=== PATIENT | male | born 1985 | race Caucasian/White ===

== ENCOUNTER 2018-09-05 08:46 | Emergency (ER) | payer OTHER ==
[~2018-09-05] VITALS: Ht 193 cm; Wt 136.1 kg
[2018-09-05] MEDS ORDERED: PROZAC20 MG PO (08:50)
[2018-09-05 09:13] LABS: ABSOLUTE NEUTROPHILS 3.5 thou/uL (1.4-8.2); BASOPHILS 1.3 % (0.0-2.0); EOSINOPHILS 0.5 % (0.0-3.0); HEMATOCRIT 41.7 % (42.0-52.0); HEMOGLOBIN 14.3 gm/dL (14.0-18.0); LYMPHOCYTES 22.6 % (24.0-44.0); MCH 29.6 pg (26.0-34.0); MCHC 34.4 g/dL (28.0-37.0); MCV 86.1 fL (80.0-100.0); MONOCYTES 5.3 % (1.0-8.0); PLATELET COUNT 229 thou/uL (150-400); POLYS 70.3 % (36.0-66.0); RBC 4.84 mil/uL (4.50-6.00); RDW 14.1 % (10.5-14.5)
[2018-09-05 09:20] LABS: CALCIUM 9.2 mg/dL (8.5-10.1); CREATININE 1.1 mg/dL (0.7-1.3); POTASSIUM 4.1 mmol/L (3.5-5.1)
[2018-09-05 09:27] LABS: ALBUMIN 3.8 g/dL (3.4-5.0); TOTAL BILIRUBIN 0.5 mg/dL (<0.1-1.0)
[2018-09-05 10:10] LABS: URINE BILIRUBIN NEGATIVE (Negative); URINE BLOOD 3+ (Negative); URINE CLARITY CLEAR; URINE COLOR YELLOW; URINE GLUCOSE-RANDOM* NEGATIVE (Negative); URINE KETONES NEGATIVE (Negative); URINE LEUKOCYTES-REFLEX NEGATIVE (Negative); URINE NITRITE-REFLEX NEGATIVE (Negative); URINE PROTEIN (DIPSTICK) NEGATIVE (Negative); URINE UROBILINOGEN 0.2 E.U./dl (0.2-1.0)
[2018-09-05 10:16] LABS: BACTERIA-REFLEX None Seen /HPF (None Seen); CASTS None Seen /LPF (None Seen); CRYSTALS None Seen /LPF (None Seen); MUCUS 0-3 Light strn/LPF (None Seen); SQUAMOUS None Seen /LPF (0-3); URINE RBC >20 Many /HPF (0-2); URINE WBC-REFLEX None Seen /HPF (0-5)
[2018-09-05] MEDS ORDERED: FLOMAX0.4 MG PO (11:27)
[2018-09-05] MEDS ORDERED: NAPROSYN500 M1 PO (11:27)
[2018-09-05] MEDS ORDERED: NORCO 5-325 TA1 EAC1 PO (11:27)
[2018-09-05 11:30] VITALS: BP 138/66
== END 2018-09-05 11:30 | disposition home or self-care (01) ==
LOC: ER 08:46
PROVIDERS: Emergency Medicine
DX: N20.0 Calculus of kidney (principal)

== ENCOUNTER → 2020-09-26 | Outpatient (CLI) | payer BC, OTHER ==
[~2020-09-26] VITALS: Ht 193 cm; Wt 139.7 kg
[~2020-09-26] MED LIST: ADVIL200 M3 PO; FLOMAX0.4 MG PO; NAPROSYN500 M1 PO; NORCO 5-325 TA1 EAC1 PO; NORFLEX100 MG PO; PROZAC20 MG PO
[2020-09-26 08:21] VITALS: BP 141/90
--- NOTE | 2020-09-26 08:49 | NUR ---
Pain Clinic Assessment: 1. History of Osteoarthritis: LUMBAR SPINE History of Rheumatoid Arthritis: DENIES 2. Height: 6 ft. 4 in. 193.0 cm. Weight: 308.0 lb. oz. 139.708 kg. Patient's BMI: 37.5 3. Vital Signs: BP: 141/90 Pulse: 73 Resp: 16 Temp: 02 Sat: 98 ECG Mon: 4. Pain Intensity: 8 TO 10 5. Fall Risk: Dizziness: Y Needs help standing or walking: N Fallen in the last 3 months: N Fall risk comments: 6. Patient on Blood Thinner: None 7. History of Hypertension: N 8. Opioid Therapy greater than 6 weeks: N Opiate Contract Signed: 9. Risk Assessment Tool Provided: MOD-5 10. Functional Assessment Tool: 11. Recreational Drug Use: Current within past 3 mos Drug Type: MARIJUANA 2X LAST 6 MOA Tobacco Use: Never Smoker Tobacco Type: Amount or Packs/day: How Many Years: Alcohol Use: Yes Frequency: Weekly Quant: 2
--- NOTE | 2020-09-26 12:24 | HPC ---
[facility] [address] [place] [address] PAIN MANAGEMENT CONSULTATION Name: KRAIG SCOTT Room #: REG [facility]..#: [id number] Admission: 09/26/20 Attend Phys: Danie Zheng DO Discharge: Date of : 85 Report #: [id number] THIS REPORT FOR: cc: Nick Escalante,Nick Elmore,Danie Arora DO ~ cc: Tien Castano MD DATE OF SERVICE: 09/26/2020 CHIEF COMPLAINT: Low back pain, right lower extremity pain with paresthesias. HISTORY OF PRESENT ILLNESS: As you know, the patient is a pleasant 35-year-old male, who reports acute onset of low back pain, right lower extremity pain with paresthesias that began in 12/2018. The patient states he recalls a slip out of his truck on to [employer] steps and then onto the ground, falling on his right side. Since then, he has been complaining of right-sided back pain, but did not notice initially radiation down the right leg. Over the preceding time, his pain intensified. He describes symptoms that began to progress 11/2019 and became severe by 05/2020. He describes pain to his referring physician a sharp, shooting, stabbing, radiating from the low back to the right buttock and down the posterior thigh to his right knee. He describes intermittent numbness and tingling. He was seen in consultation by Dr. Bayron Escalante, who has trialed the patient on conservative treatment including home stretching exercises, but no formalized physical therapy and muscle relaxants. These two treatment options did not provide much in the way of improvement. The patient was subsequently referred on to neurosurgery to discuss surgical options to address the L5-S1 level findings from imaging. The patient was seen by Dr. Castano and advised to trial conservative treatment options, if these do not provide benefit, then look toward surgical options. He was subsequently referred on to our clinic to discuss lumbar epidural injections under fluoroscopic guidance. The patient reports his pain is constant. He describes the pain as a shooting, numbness, tingling and sharp sensation. Places current pain score at 8/10, daily average at 8/10, worst pain has been is 10/10. The patient states pain is exacerbated with sitting for any length of time, pain is improved with standing or lying flat on hard surfaces. He has been referred to our service to discuss interventional treatment options to address lumbar radiculopathy. PAST MEDICAL HISTORY: 1. Sleep apnea. 2. Anxiety disorder. 3. Depression. PAST SURGICAL HISTORY: 1. Cholecystectomy. 2. Vasectomy. [address] [address] PAIN MANAGEMENT CONSULTATION Name: KRAIG SCOTT Room #: REG [facility] SharminJermain#: [id number] Admission: 09/26/20 Attend Phys: Danie Zheng DO Discharge: Date of : 85 Report #: [id number] SOCIAL HISTORY: The patient reports no tobacco use. Denies IV or illicit drug use, though admits to marijuana periodically. He admits to an occasional alcohol beverage. He is working, not receiving workmen's compensation nor is he trying to obtain disability benefits. He is not in litigation in regard to pain. He is unaccompanied at today's visit. REVIEW OF SYSTEMS: Positive for weight change, decrease in appetite, wearing corrective eyewear, loss of appetite, kidney stones, lightheadedness, dizziness, numbness and tingling sensations involving the right lower extremity. All other review of systems negative per 12-point review of systems other than those listed in history of present illness. Pain impact score 33/70, moderate interference of daily activities secondary to pain. ALLERGIES: No known drug allergies. CURRENT MEDICATIONS: Norflex 100 mg 3 times a day, ibuprofen 200 mg every 8 hours, naproxen 500 mg p.r.n. IMAGING: MRI of lumbar spine dated 09/07/2020 shows L1-L2, L2-L3 and L3-L4 with minimal generalized disc bulge, degenerative changes, small facet arthropathy, mild to moderate ligamentum flavum hypertrophy. These findings combined to cause no central canal or neural foraminal stenosis. L4-L5 shows mild generalized disc bulge. Superimposed disc bulge with central right paracentral focal disc protrusion measuring 4 mm. Degenerative changes noted of the facet joints. There is prominent posterior epidural fat and mild ligamentum flavum hypertrophy, small facet effusions combining to result in mild right and minimal left central canal stenosis, no neural foraminal stenosis. L5-S1 shows disc space loss with mild generalized disc bulge. Superimposed disc bulge and right paracentral focal disc protrusion measuring 6 mm. Degenerative changes involving the facet joints. Mild ligamentum flavum hypertrophy bilaterally. These result in severe right lateral central canal stenosis. Disc herniation appears to impinge upon the right S1 nerve root. Moderate right neural foraminal stenosis is also seen, negative left neural foraminal stenosis. PHYSICAL EXAMINATION: VITAL SIGNS: Blood pressure 141/90, pulse is 73, respiratory rate 16 and unlabored. The patient is 98% on room air, height 6 feet 4 inches tall, weight 308 pounds, BMI calculated 37.5. GENERAL: Well-developed, well-nourished, well-hydrated exogenously obese 35-year-old male. He appears stated age. He is placing current pain score at around 8-10/10. HEENT: Normocephalic, atraumatic. Pupils equal, round and responsive to light. Speech is fluent. The patient deemed a good historian. [facility] [address] [place] [address] PAIN MANAGEMENT CONSULTATION Name: KRAIG SCOTT Room #: REG [facility].#: [id number] Admission: 09/26/20 Attend Phys: Danie Zheng DO Discharge: Date of : 85 Report #: [id number] LUNGS: Clear. No wheeze, rhonchi or rales. CARDIOVASCULAR: Regular. No gallop, no rub. ABDOMEN: Soft, obese, normoactive bowel sounds. EXTREMITIES: Show no clubbing, no cyanosis, no edema. MUSCULOSKELETAL: Lower extremity strength is symmetrical 5/5 intact to light touch from L1 through L5 dermatomes. Distal right S1 distribution appears to have decreased tactile sensation to light touch. Seated straight leg raising is positive on the right. Supine straight leg raising positive on the right. Fabere's test is negative. Modified Gaenslen's positive for axial back pain. Ankle clonus negative. Babinski is negative. Alvaro's testing is negative. The patient does have an antalgic gait favoring right lower extremity over left. ASSESSMENT: 1. Symptomatic lumbar radiculopathy. 2. 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 3. Displacement of lumbar intervertebral disc with radiculopathy. 4. Lumbosacral spondylosis with radiculopathy. 5. Facet arthropathy, lumbar spine. PLAN: 1. Based on today's physical exam, history the patient provides, the distribution of the patient's symptoms and the description he uses in regard to pain what appear the patient is suffering from lumbar radiculopathy, the findings of his MRI we went over with the patient today. We spent over 18 minutes of time reviewing the patient's MRI and correlating the findings of the MRI to the symptoms he is currently displaying. It does appear the source of the symptoms is that the findings at the L5-S1 level secondary to lateral recess stenosis affecting the right S1 nerve root. We discussed with the patient the treatment options we have available following was discussed with the patient today. We discussed physical therapy, stretching exercises and core strengthening as a treatment approach. We discussed medication management with suggestions of treatment to include amitriptyline, nortriptyline, Cymbalta, Lyrica, gabapentin as a possible treatment along with a consistent nonsteroidal anti-inflammatory. We discussed epidural injections under fluoroscopic guidance for which the patient was referred to our clinic. We also discussed spinal cord stimulator therapy and ultimately surgical decompression of the L5-S1 level. After reviewing the risks and benefits of all proposed treatment options, the patient chose to begin the process of undergoing lumbar epidural injections under fluoroscopic guidance. 2. The patient will clear his schedule for tomorrow to undergo a lumbar epidural injection. He will need 24 hours of time to recover after the procedure and to allow improvement in efficacy with the shot. He is going to clear his schedule for tomorrow morning, so he can undergo the procedure and then return to his home for the remainder of the Friday. We have made the [address] [address] PAIN MANAGEMENT CONSULTATION Name: KRAIG SCOTT Room #: REG [facility]#: [id number] Admission: 09/26/20 Attend Phys: Danie Zheng DO Discharge: Date of : 85 Report #: [id number] patient a tentative appointment for tomorrow morning to undergo the requested lumbar epidural injection. 3. No medication changes made at today's visit. The patient will continue current medical therapy as prior prescribed. 4. We plan to see the patient back in followup visit tomorrow to undergo lumbar epidural injection, assuming he can clear his schedule. We have an appointment time for him to undergo the procedure tomorrow morning at about 8:30. 5. We wish to thank Dr. Tien Castano for the referral of the patient to our clinic. We will keep you apprised of his response to treatment as we address lumbar radiculopathy. Again, we wish to thank you for the opportunity to see the patient in consultation. <ELECTRONICALLY SIGNED> By: Danie Zheng DO 09/26/20 1224 [id number] Danie Zheng DO /nt
== END ==
LOC: PAIN 06:42
PROVIDERS: ATTEND Anesthesiology Pain Medicine
DX: M51.16 Intervertebral disc disorders with radiculopathy, lumbar region (principal); M48.061 Spinal stenosis, lumbar region without neurogenic claudication; M47.27 Other spondylosis with radiculopathy, lumbosacral region; G47.30 Sleep apnea, unspecified; Z90.49 Acquired absence of other specified parts of digestive tract; Z68.37 Body mass index [BMI] 37.0-37.9, adult

== ENCOUNTER → 2020-09-27 | Outpatient (CLI) | payer BC, OTHER ==
[~2020-09-27] VITALS: Ht 193 cm; Wt 139.7 kg
--- NOTE | ~2020-09-27 | HPC ---
[facility] [place] [address] PAIN MANAGEMENT CONSULTATION Name: SONIAKRAIG OWENS Room #: REG [facility] Mary.#: [id number] Admission: 09/27/20 Attend Phys: Danie Zheng DO Discharge: Date of : 85 Report #: [id number] THIS REPORT FOR: cc: Nick Escalante,Nick Elmore,Danie Arora DO ~ cc: Nick Escalante DATE OF SERVICE: 09/27/2020 REFERRING PHYSICIAN: Dr. Nick Escalante. CHIEF COMPLAINT: Low back pain, right lower extremity pain and paresthesias. HISTORY OF PRESENT ILLNESS: As you know, the patient is a very pleasant 35-year-old male referred to our service after experiencing acute onset of low back pain, right lower extremity pain, paresthesia began in December 2018. He has trialled conservative treatment, but did not note improvement in symptoms. He was referred to Neurosurgery to discuss surgical options to address the L5-S1 level findings from recent MRI. He was seen by Dr. Castano who advised the patient to trial conservative treatment before looking toward surgical options. He was subsequently referred on to our clinic. We saw the patient in consultation on 09/27/2019, diagnosed with lumbar radiculopathy due to severe lateral recess stenosis. He was established today's appointment to undergo lumbar epidural injection under fluoroscopic guidance. The patient has had no change in his distribution of symptoms overnight. He is continuing to escalate his pain at a level of 9/10. ALLERGIES: No known drug allergies. CURRENT MEDICATIONS: NORFLEX, IBUPROFEN, NAPROXEN. SOCIAL HISTORY: The patient denies tobacco use. Denies IV or illicit drug use. Admits to marijuana periodically. He admits to occasional alcohol beverage. He is working, not receiving workmen's compensation, unaccompanied today. IMAGING: No new imaging available. PHYSICAL EXAMINATION: VITAL SIGNS: Blood pressure 149/86, pulse 76, respiratory rate 18 and unlabored. The patient is 97% on room air, height 6 feet 4 inches tall, weight 380 pounds, BMI calculated 37.5. GENERAL: Well-developed, well-nourished, well-hydrated exogenously obese 35-year-old male, pain is rated today 9/10. HEENT: normocephalic, atraumatic. Pupils equal, round and responsive. He is wearing a mask in compliance with COVID-19 regulations. EXTREMITIES: Show no clubbing, no cyanosis, no edema. [facility] [address] [place] [address] PAIN MANAGEMENT CONSULTATION Name: SONIAKRAIG OWENS Room #: REG [facility].#: [id number] Admission: 09/27/20 Attend Phys: Danie Zheng DO Discharge: Date of : 85 Report #: [id number] MUSCULOSKELETAL: Lower extremity strength appears symmetrical again today 5/5. Seated straight leg raising negative. Supine straight leg raising is positive on the right. Claudia's test is negative. Gait is mildly antalgic favoring right lower extremity. ASSESSMENT: 1. Symptomatic lumbar radiculopathy. 2. 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 3. Displacement of lumbar intervertebral disk with radiculopathy. 4. Lumbosacral spondylosis with radiculopathy. 5. Facet arthropathy of the lumbar spine. 6. Chronic intractable pain. PLAN: 1. The patient returns today in followup visit having received authorizations to undergo a lumbar epidural injection under fluoroscopic guidance. He is also able to clear his schedule for the afternoon to go home and rest and relax after today's procedure. The patient has been advised of the risks and benefits of a lumbar epidural injection. These risks include, but are not necessarily limited to bleeding, bruising, infection, worsening pain, no relief of pain, also risk of temporary or permanent muscle weakness, temporary or permanent nerve damage, possible paralysis, and . The patient states understood and wished to proceed. 2. No medication changes made at today's visit. The patient will continue current medical therapy as prior prescribed. 3. I will see the patient back in followup visit in 31 days. At that time, review efficacy of today's lumbar epidural injection and determine if next in the series of epidural injections might be recommended. PROCEDURE NOTE DESCRIPTION OF PROCEDURE: L5-S1 right parasagittal epidural steroid injection under fluoroscopic guidance. This is the first procedure of the first series that the patient is undergoing. After obtaining written consent, the patient was taken back to the fluoroscopy suite, placed in a prone position with pillow under the abdomen to decrease lumbar lordosis. The skin overlying the lumbosacral area was then prepped and draped in aseptic fashion. The L5-S1 vertebral interspace was then identified by AP fluoroscopy. The skin and subcutaneous tissue overlying the target site of injection was anesthetized with 3 mL 1% lidocaine. A(n) 20 gauge 3.5 inch Tuohy needle was then advanced under fluoroscopic guidance towards the epidural space using a right parasagittal approach. The epidural space was identified using loss of resistance to air technique. After [facility] [address] [address] PAIN MANAGEMENT CONSULTATION Name: KRAIG SCOTT Room #: REG [facility]sorio#: [id number] Admission: 09/27/20 Attend Phys: Danie Zheng DO Discharge: Date of : 85 Report #: [id number] negative aspiration for heme or cerebrospinal fluid, a total of 1 mL of Omnipaque was injected. A lumbar epidurogram was confirmed using both AP and lateral fluoroscopy. After negative aspiration for heme or cerebrospinal fluid, 5 mL of a solution containing 2 mL 40 mg per mL 80 mg total triamcinolone along with 3 mL of lidocaine 1% was injected in increments. Contrast spread was noted posterior epidural space. The needle was then retracted approximately half way and needle tract flushed with 1 mL of 1% lidocaine. Needle was then removed. There were no apparent sensory or motor deficits in the lower extremity following the procedure. A sterile bandage was placed over the injection site. The heart rate, pulse, oximetry and blood pressure were continuously monitored after the procedure. There were no apparent complications. The patient tolerated the procedure well and was carefully escorted to the recovery room in stable condition. There were no apparent complications. After meeting discharge criteria, the patient was then discharged home. By: [id number] Danie Zheng DO /nt
[2020-09-27 09:54] VITALS: BP 149/86
--- NOTE | 2020-09-27 10:31 | NUR ---
Pain Clinic Assessment: 1. History of Osteoarthritis: LUMBAR SPINE History of Rheumatoid Arthritis: DENIES 2. Height: 6 ft. 4 in. 193.0 cm. Weight: 308.0 lb. oz. 139.708 kg. Patient's BMI: 37.5 3. Vital Signs: BP: 149/86 Pulse: 76 Resp: 18 Temp: 02 Sat: 97 ECG Mon: 4. Pain Intensity: 9 5. Fall Risk: Dizziness: N Needs help standing or walking: N Fallen in the last 3 months: N Fall risk comments: 6. Patient on Blood Thinner: None 7. History of Hypertension: N 8. Opioid Therapy greater than 6 weeks: N Opiate Contract Signed: 9. Risk Assessment Tool Provided: MOD-5 10. Functional Assessment Tool: 11. Recreational Drug Use: Current within past 3 mos Drug Type: Tobacco Use: Never Smoker Tobacco Type: Amount or Packs/day: How Many Years: Alcohol Use: Yes Frequency: Quant:
== END | disposition home or self-care (01) ==
LOC: PAIN 07:00
PROVIDERS: ATTEND Anesthesiology Pain Medicine
DX: M51.16 Intervertebral disc disorders with radiculopathy, lumbar region (principal); M47.27 Other spondylosis with radiculopathy, lumbosacral region; M47.26 Other spondylosis with radiculopathy, lumbar region; M48.061 Spinal stenosis, lumbar region without neurogenic claudication; G89.29 Other chronic pain; Z98.890 Other specified postprocedural states; Z79.899 Other long term (current) drug therapy

== ENCOUNTER → 2020-11-15 | Outpatient (CLI) | payer BC, OTHER ==
[~2020-11-15] VITALS: Ht 193 cm; Wt 138.0 kg
[~2020-11-15] MED LIST changes: +LEXAPRO20 MG PO
[2020-11-15 08:02] VITALS: BP 141/96
--- NOTE | 2020-11-15 08:14 | NUR ---
Pain Clinic Assessment: 1. History of Osteoarthritis: LUMBAR SPINE History of Rheumatoid Arthritis: DENIES 2. Height: 6 ft. 4 in. 193.0 cm. Weight: 304.2 lb. oz. 137.985 kg. Patient's BMI: 37.0 3. Vital Signs: BP: 141/96 Pulse: 60 Resp: 16 Temp: 02 Sat: 97 ECG Mon: 4. Pain Intensity: 6 5. Fall Risk: Dizziness: N Needs help standing or walking: N Fallen in the last 3 months: N Fall risk comments: 6. Patient on Blood Thinner: None 7. History of Hypertension: N 8. Opioid Therapy greater than 6 weeks: N Opiate Contract Signed: 9. Risk Assessment Tool Provided: MOD-5 10. Functional Assessment Tool: 11. Recreational Drug Use: Current within past 3 mos Drug Type: Tobacco Use: Never Smoker Tobacco Type: Amount or Packs/day: How Many Years: Alcohol Use: Yes Frequency: Quant:
--- NOTE | 2020-11-21 15:04 | HPC ---
[facility] [place] [address] PAIN MANAGEMENT CONSULTATION Name: KRAIG SCOTT Room #: REG [facility]..#: [id number] Admission: 11/15/20 Attend Phys: Danie Zheng DO Discharge: Date of : 85 Report #: [id number] THIS REPORT FOR: cc: Bayron Escalante,Danie Villegas DO ~ cc: Tien Castano MD, Nick Escalante DO DATE OF SERVICE: 11/15/2020 CHIEF COMPLAINT: Low back pain, right lower extremity pain with paresthesias. HISTORY OF PRESENT ILLNESS: As you know, the patient is a very pleasant 35-year-old male referred to our service for chronic low back pain, right lower extremity pain and paresthesias that began in December 2018. He trialed conservative treatments including [id number]-[id number] medication, rest, relaxation and physical therapy without benefit. He sought evaluation through neurosurgery who advised the patient to trial epidural injections before moving forward with possible surgical options. We saw the patient in consultation per the request of Dr. Castano on 09/26/2020, having the patient return to undergo first in a series of lumbar epidural injections. The patient reports about a 50% improvement in overall pain with that injection, but unfortunately symptoms have reoccurred. He returns today in followup visit requesting the next in the series of lumbar epidural injections to build on success of previous intervention. The patient is indicating pain begins in the low back, radiates down the right leg to the foot. He describes the pain as sharp, shooting, stabbing, exacerbated with sitting and doing heavy activities, improves with standing and lying down as well as the previous epidural injection. He returns today in followup visit requesting the next in the series of lumbar epidural injections. ALLERGIES: No known drug allergies. CURRENT MEDICATIONS: Norflex, ibuprofen, and naproxen. SOCIAL HISTORY: The patient denies tobacco use. Denies IV or illicit drug use. Admits to occasional marijuana, but has discontinued of late. He is not receiving Workmen's Compensation nor is he trying to obtain disability benefits. Unaccompanied today. IMAGING: No new imaging available. PHYSICAL EXAMINATION: VITAL SIGNS: Blood pressure 141/96, pulse 60, respiratory rate 16 and unlabored. The patient 97% on room air, height 6 feet 4 inches tall, weight 304.2 pounds, BMI calculated 37.0. GENERAL: Well-developed, well-nourished, well-hydrated, exogenously obese [facility] [address] [place] [address] PAIN MANAGEMENT CONSULTATION Name: KRAIG SCOTT Room #: REG [facility].#: [id number] Admission: 11/15/20 Attend Phys: Danie Zheng DO Discharge: Date of : 85 Report #: [id number] 35-year-old male appearing stated age, pain score today rated at 6/10. HEENT: Normocephalic, atraumatic. Pupils are round and responsive. He is wearing a mask in compliance with COVID-19 regulations. EXTREMITIES: Show no clubbing, no cyanosis. No appreciable edema. MUSCULOSKELETAL: Lower extremity strength is symmetrical. Seated straight leg raising negative. Supine straight leg raising positive on the right approximately 60-degree angle. Ankle clonus negative. Babinski is negative. Gait appears to have improved, but is mildly antalgic. ASSESSMENT: 1. Symptomatic lumbar radiculopathy. 2. 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 3. Displacement of lumbar intervertebral disk with radiculopathy. 4. Lumbosacral spondylosis with radiculopathy. 5. Facet arthropathy of lumbar spine. 6. Chronic intractable pain. PLAN: 1. The patient returns today in followup visit requesting to undergo lumbar epidural injection under fluoroscopic guidance. He reports about a 50% improvement in overall pain with the initial injection, returning today hoping to undergo next in the series to build on success of previous intervention. The patient has been advised of the risks and benefits of the procedure, states understood and wished to proceed. 2. The patient and I had a long discussion when we initially saw the patient on 09/26/2020 and again when he followed up to undergo the epidural that we recommend that he try to make adjustments in his work activities as I did not feel he can continue to participate in the high level of physical activity required for his [employer] job. 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 He is very pleased. He is excited to begin this new chapter in his life. I am glad to see the patient did consider this as an option and has made some adjustments in his lifestyle, which I think will allow him to continue to work without progression of his symptoms. 3. We did provide the patient a refill of his naproxen 500 mg dose. We recommend a b.i.d. dose. I have given him #60 tablets with refills. These were sent to his local pharmacy via [facility]. I did advise the patient to take no other nonsteroidal anti-inflammatories with this medication including the reported ibuprofen. 4. We will see the patient back in followup visit on an as-needed basis. I am hopeful the patient will once again see good and prolonged benefit with the epidural injection provided today. PROCEDURE NOTE DESCRIPTION OF PROCEDURE: L5-S1 right paramedian epidural steroid injection [facility] [address] [place] [address] PAIN MANAGEMENT CONSULTATION Name: KRAIG SCOTT Room #: REG [facility]io#: [id number] Admission: 11/15/20 Attend Phys: Danie Zheng DO Discharge: Date of : 85 Report #: [id number] under fluoroscopic guidance. This is the second procedure of the first series that the patient is undergoing. After obtaining written consent, the patient was taken back to the fluoroscopy suite, placed in a prone position with pillow under the abdomen to decrease lumbar lordosis. The skin overlying the lumbosacral area was then prepped and draped in aseptic fashion. The L5-S1 vertebral interspace was then identified by AP fluoroscopy. The skin and subcutaneous tissue overlying the target site of injection was anesthetized with 3 mL 1% lidocaine. A 20-gauge, 4-1/2-inch Tuohy needle was then advanced under fluoroscopic guidance towards the epidural space using a right paramedian approach. The epidural space was identified using loss of resistance to air technique. After negative aspiration for heme or cerebrospinal fluid, a total of 1 mL of Omnipaque was injected. A lumbar epidurogram was confirmed using both AP and lateral fluoroscopy. After negative aspiration for heme or cerebrospinal fluid, 5 mL of a solution containing 2 mL 40 mg per mL, 80 mg total triamcinolone along with 3 mL of lidocaine 1% was injected in increments. Contrast spread was noted in the posterior epidural space. The needle was then retracted approximately half way and needle tract flushed with 1 mL of 1% lidocaine. Needle was then removed. There were no apparent sensory or motor deficits in the lower extremity following the procedure. A sterile bandage was placed over the injection site. The heart rate, pulse, oximetry and blood pressure were continuously monitored after the procedure. There were no apparent complications. The patient tolerated the procedure well and was carefully escorted to the recovery room in stable condition. There were no apparent complications. After meeting discharge criteria, the patient was then discharged home. <ELECTRONICALLY SIGNED> By: Danie Zheng DO 11/21/20 [id number] Danie Zheng DO /nt
== END | disposition home or self-care (01) ==
LOC: PAIN 06:56
PROVIDERS: ATTEND Anesthesiology Pain Medicine
DX: M51.16 Intervertebral disc disorders with radiculopathy, lumbar region (principal); M48.061 Spinal stenosis, lumbar region without neurogenic claudication; M47.27 Other spondylosis with radiculopathy, lumbosacral region; M47.26 Other spondylosis with radiculopathy, lumbar region; G89.29 Other chronic pain; Z98.890 Other specified postprocedural states; Z79.899 Other long term (current) drug therapy

== ENCOUNTER → 2021-02-06 | Outpatient (CLI) | payer BC, OTHER ==
[~2021-02-06] VITALS: Ht 193 cm; Wt 143.3 kg
[~2021-02-06] MED LIST changes: +NEURONTIN 300M300 M2 PO
--- NOTE | ~2021-02-06 | HPC ---
[facility] [place] [address] PAIN MANAGEMENT CONSULTATION Name: KRAIG SCOTT [id number] Admission: 02/06/21 Attend Phys: Danie Zheng DO Discharge: Date of : 85 Report #: [id number] THIS REPORT FOR: cc: Bayron Escalante,Bayron Elmore,Danie Arora DO ~ cc: Tien Castano MD, Bayron Escalante DO DATE OF SERVICE: 02/06/2021 CHIEF COMPLAINT: Low back pain, right lower extremity pain with paresthesias. HISTORY OF PRESENT ILLNESS: As you know, the patient is a very pleasant 35-year-old male referred to our service for chronic low back pain, right lower extremity pain with paresthesias began in 2018. He has trialled conservative treatment, hpuv-xfw-[id number] medications, rest, relaxation without benefit. He submitted to lumbar epidural injection under fluoroscopic guidance. On our visit of 09/27/2020 where he received benefit with the injection, he returned 1 month later on 11/15/2020, undergoing the second in the series. He reports that the most recent epidural injection gave benefit of greater than 50%, lasting for 4 weeks, but unfortunately activities at his current employment required him to be more active than normal and this led to recurrence of symptoms. He returns today to discuss other treatment options to address ongoing lumbar radicular symptoms. The patient denies any specific injury or trauma that may have led to symptom development. He has had no changes in his medication management since our last visit. ALLERGIES: No known drug allergies. CURRENT MEDICATIONS: Ibuprofen 200 mg t.i.d. Norflex 800 mg 3 times a day, citalopram 20 mg once a day. SOCIAL HISTORY: The patient denies tobacco use, denies IV or illicit drug use. Admits occasional marijuana. He is not receiving workmen's compensation nor is he trying to obtain disability benefits. He is accompanied to today's appointment by his significant other. IMAGING: No new imaging available. PHYSICAL EXAMINATION: VITAL SIGNS: Blood pressure 151/100, pulse is 87, respiratory rate 16 and unlabored. The patient is 98% on room air, height 6 feet 4 inches tall, weight 316 pounds, BMI calculated 38.5. GENERAL: Well-developed, well-nourished, well-hydrated exogenously obese 35-year-old male, appearing stated age, pain is rated today at 6/10. HEENT: Normocephalic, atraumatic. Pupils equal, round and responsive. He is wearing a mask in compliance with COVID-[address] [address] PAIN MANAGEMENT CONSULTATION Name: SONIAKRAIG GRACIELA Room #: REG [facility] Mary.#: [id number] Admission: 02/06/21 Attend Phys: Danie Zheng DO Discharge: Date of : 85 Report #: [id number] EXTREMITIES: Show no clubbing, no cyanosis, no appreciable edema. MUSCULOSKELETAL: Remains similar. Seated straight leg raising negative. Supine straight leg raising positive on the right. Ankle clonus is once again negative. Muscle bulk and tone is equal and symmetrical in lower extremities. ASSESSMENT: 1. Symptomatic lumbar radiculopathy. 2. 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 3. Displacement of lumbar intervertebral disk with radiculopathy. 4. Lumbosacral spondylosis with radiculopathy. 5. Facet arthropathy of lumbar spine. 6. Chronic intractable pain. PLAN: 1. The patient returns today in followup visit to discuss options for treatment. We have had the patient undergo 2 epidural injections under fluoroscopic guidance, both of which have provided improvement in symptoms of greater than 50%, but unfortunately, his symptoms have reoccurred. 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 The patient returns today to discuss options for treatment. The following was discussed with the patient today. We discussed physical therapy, stretching exercises, core strengthening as a treatment approach. This is in conjunction with a concerted effort at weight loss. We discussed medication management utilizing neuropathic medications such as amitriptyline, nortriptyline, Cymbalta, Lyrica or gabapentin. We discussed repeating a lumbar epidural injection under fluoroscopic guidance as we have one remaining epidural injection in the 6 months. We discussed spinal cord stimulator therapy and ultimately surgical decompression. After reviewing risks and benefits of all proposed treatment options, the patient chose to begin with adjustments in medication management. 2. The patient will be started on gabapentin 300 mg dose, he will start 1 tab p.o. at bedtime for 3 nights, then increase to 2 tabs p.o. at bedtime, assuming no improvement in symptoms, no side effects. If no improvement in symptoms and side effects over 3 nights, then triple the dose to 900 mg p.o. at bedtime. The patient will watch for side effects of sleepiness, disorientation, confusion, mental slowing. If he notes those side effects, reduce to the dose prior and contact our clinic. If no improvement in symptoms and no side effects, then continue the titration as follows. The patient will then increase 1 tab p.o. q.a.m. and 3 tabs p.o. at bedtime for 3 nights. If again no improvement in symptoms, no side effects, then go to 1 tab in the morning, 4 tabs at night for 3 nights. If again no improvement in symptoms, no side effects, then increase to 600 mg in the morning, continuing 1200 mg at night for 3 nights. Following this titration, he will then increase to 900 mg morning and 1200 mg at night. The patient again will watch for side effects of medication. The prescription was sent to his local pharmacy of [id number], 300 mg tablets. If the patient has any questions or concerns in regards to medication, contact our clinic. [address] [address] PAIN MANAGEMENT CONSULTATION Name: KRAIG SCOTT [facility] [id number] Admission: 02/06/21 Attend Phys: Danie Zheng DO Discharge: Date of : 85 Report #: [id number] 3. We will plan to see the patient back in followup visit in 1 month. At that time, review the efficacy of the addition of gabapentin and determine if adjustments need to be made further where he is doing well and will continue the treatment as directed. By: [id number] Danie Zheng DO /nt
[2021-02-06 13:02] VITALS: BP 151/100
--- NOTE | 2021-02-06 13:06 | NUR ---
Pain Clinic Assessment: 1. History of Osteoarthritis: LUMBAR SPINE History of Rheumatoid Arthritis: DENIES 2. Height: 6 ft. 4 in. 193.0 cm. Weight: 316.0 lb. oz. 143.337 kg. Patient's BMI: 38.5 3. Vital Signs: BP: 151/100 Pulse: 87 Resp: 16 Temp: 02 Sat: 98 ECG Mon: 4. Pain Intensity: 6 5. Fall Risk: Dizziness: N Needs help standing or walking: N Fallen in the last 3 months: N Fall risk comments: 6. Patient on Blood Thinner: None 7. History of Hypertension: N 8. Opioid Therapy greater than 6 weeks: N Opiate Contract Signed: 9. Risk Assessment Tool Provided: MOD-5 10. Functional Assessment Tool: 11. Recreational Drug Use: Past greater than 3 mos Drug Type: Tobacco Use: Never Smoker Tobacco Type: Amount or Packs/day: How Many Years: Alcohol Use: No Frequency: Quant:
== END ==
LOC: PAIN 10:48
PROVIDERS: ATTEND Anesthesiology Pain Medicine
DX: M47.26 Other spondylosis with radiculopathy, lumbar region (principal); M47.27 Other spondylosis with radiculopathy, lumbosacral region; M51.16 Intervertebral disc disorders with radiculopathy, lumbar region; M48.061 Spinal stenosis, lumbar region without neurogenic claudication; M79.661 Pain in right lower leg; G89.29 Other chronic pain; Z79.899 Other long term (current) drug therapy